=== PATIENT | male | born 1940 | race Hispanic/Latino ===

== ENCOUNTER → 2019-03-20 | Outpatient (CLI) | payer MEDICARE ==
[~2019-03-20] MED LIST: AMIODARONE HCL200 MG PO; ASA81 MG PO; CO Q-10300 MG PO; FLAXSEED OIL PO; LOVENOX60 MG/0.6 SC; MAGNESIUM OXID400 MG PO; MULTIVITAMINS1 EAC7 PO; REGADENOSON 0.4 MG/5 ML SYR IV ONE; TYLENOL PO; Z VERAPAMIL HCL PO; Z.0.LEVOTHYROXINE25 PO; Z.0.PLAVIX75 MG PO; [UNRECOGNIZED DRUG - OTHER] PO; sotalol PO
--- NOTE | 2019-03-21 13:11 | Myoview Stress Test ---
DATE OF STUDY: 03/20/2019 11:21:00 Stress Test - Treadmill ONLY Thank you, Dr. Lopez for this nuclear interpretation consultation. Nuclear gated myocardial perfusion scan performed as per protocol at [facility] at [facility]. The stress test is supervised by Dr. Balaji Lopez. Lexiscan injected 0.4 mg intravenously stress agent. Myoview injected 11 mCi for resting protocol and 31 mCi for stress protocol. IMPRESSION: 1. Normal gated myocardial perfusion scan. 2. No evidence of ischemia or scar noted. 3. Left ventricular ejection fraction 60%. 4. Normal study. Tamar Robertson MD [facility] /[id number]
== END ==
LOC: NM 10:04
PROVIDERS: ATTEND Internal Medicine Cardiovascular Disease
DX: I25.10 Atherosclerotic heart disease of native coronary artery without angina pectoris (principal)
CPT/HCPCS: 78452; 93017; A9502; J2785

== ENCOUNTER → 2021-01-05 | Outpatient (CLI) | payer MEDICARE | LOC: NM 09:18 | PROVIDERS: ATTEND Internal Medicine Cardiovascular Disease | DX: I25.10 Atherosclerotic heart disease of native coronary artery without angina pectoris (principal) | CPT/HCPCS: 78452; 93017; A9502; J2785 ==

== ENCOUNTER 2021-01-11 08:37 | Observation (INO) | payer MEDICARE ==
[2021-01-09 12:54] LABS: BASOPHILS # (AUTO) 0.1 (0.0-0.1); BASOPHILS % 1.1 % (0.0-1.0); EOSINOPHILS # (AUTO) 0.4 (0.0-0.4); EOSINOPHILS % 5.7 % (0.0-6.0); HEMATOCRIT 36.5 % (38.2-49.6); HEMOGLOBIN 11.8 g/dL (14.0-18.0); LYMPHOCYTES # (AUTO) 1.2 (1.0-3.2); LYMPHOCYTES % 19.4 % (18.0-39.1); MEAN CORPUSCULAR HGB CONC 32.3 g/dL (31-35); MEAN CORPUSCULAR VOLUME 98.9 fL (81-99); MONOCYTES # (AUTO) 0.8 (0.2-0.8); MONOCYTES % 12.4 % (4.4-11.3); NEUTROPHILS # (AUTO) 3.7 (2.1-6.9); NEUTROPHILS % 60.6 % (38.7-80.0); PLATELET COUNT 149 x10e3/uL (140-360); RED BLOOD COUNT 3.69 x10e6/uL (4.3-5.7); RED CELL DISTRIBUTION WIDTH 14.3 % (11.7-14.4)
[2021-01-09 13:08] LABS: CALCIUM 9.4 mg/dL (8.4-10.2); CREATININE, SERUM 1.83 mg/dL (0.72-1.25)
[~2021-01-11] VITALS: Ht 172.7 cm; Wt 98.4 kg
[2021-01-11] VITALS (15 sets, daily range): BP systolic 99–136; BP diastolic 66–88
[~2021-01-11 08:37] MED LIST changes: +CARVEDILOL12.5 MG PO; +COREG6.25 MG PO; +LEVOTHYROXINE75 MCG PO; +OMEGA 3 1,0001 EACH PO; +PROPAFENONE HC325 MG PO; -REGADENOSON 0.4 MG/5 ML SYR IV ONE; +ZETIA10 MG PO
[2021-01-11] MEDS ORDERED: FAMOTIDINE 20 MG TAB ONE (08:57)
[2021-01-11] MEDS ORDERED: ALPRAZOLAM 0.5 MG TAB ONE (08:58)
[2021-01-11] MEDS ORDERED: SODIUM CHLORIDE 0.9% 1000ML 1,000 ML ONE (08:58)
[2021-01-11] MEDS ORDERED: MIDAZOLAM HCL 2 MG/2 ML VIAL ONE (09:01)
[2021-01-11] MEDS ORDERED: HEPARIN SOD (PORCINE) 1000 UNIT/ML 30ML ONE (09:01)
[2021-01-11] MEDS ORDERED: HEPARIN SOD/SOD CHLORIDE 2,000 ML ONE (09:02)
[2021-01-11] MEDS ORDERED: FENTANYL CITRATE/PF 100MCG/2 ML INJ ONE (09:02)
[2021-01-11] MEDS ORDERED: NITROGLYCERIN/D5W 200 MCG/ML 0 ML ONE (09:02)
[2021-01-11] MEDS ORDERED: IOPAMIDOL 370 MG/ML 200 ML INFUS..BTL INJ ONE ×3 (09:02→13:47)
[2021-01-11] MEDS ORDERED: LIDOCAINE HCL 2% LOCAL 20 ML VIAL ONE (09:02)
[2021-01-11] MEDS ORDERED: LORAZEPAM INJ 2 MG/ML VIAL ONE (09:06)
[2021-01-11] MEDS ORDERED: CEFAZOLIN SOD 1 GM VIAL ONE (11:35)
[2021-01-11] MEDS ORDERED: SODIUM CHLORIDE 0.9% 50ML 50 ML ONE ×2 (11:35→11:57)
[2021-01-11] MEDS ORDERED: BIVALRIUDIN 250 MG/VIAL VIAL IV ONE (11:57)
[2021-01-11] MEDS: PROPAFENONE HCL 150 MG TAB PO SCH (17:33)
[2021-01-11] MEDS: CARVEDILOL 12.5 MG TAB PO SCH (21:00)
[2021-01-11] MEDS: HYDROCODONE/APAP 5MG-325MG TAB PO PRN (21:15)
[2021-01-11] MEDS: OMEGA 3 POLYUNSAT FATTY ACIDS 1000 MG SOFTGEL PO SCH (21:15)
[2021-01-11] MEDS: ASPIRIN 81 MG CHEW TAB PO SCH (21:15)
[2021-01-11] MEDS: SODIUM CHLORIDE 0.9% 1000ML 1,000 ML IV SCH (23:56)
[2021-01-12] VITALS (8 sets, daily range): BP systolic 101–133; BP diastolic 61–77
[2021-01-12] MEDS: HYDROCODONE/APAP 5MG-325MG TAB PO PRN ×4 (01:15→21:09)
[2021-01-12 05:05] LABS: BASOPHILS # (AUTO) 0.1 (0.0-0.1); BASOPHILS % 1.1 % (0.0-1.0); EOSINOPHILS # (AUTO) 0.2 (0.0-0.4); EOSINOPHILS % 3.3 % (0.0-6.0); HEMATOCRIT 31.6 % (38.2-49.6); HEMOGLOBIN 10.3 g/dL (14.0-18.0); LYMPHOCYTES # (AUTO) 1.1 (1.0-3.2); LYMPHOCYTES % 14.4 % (18.0-39.1); MEAN CORPUSCULAR HGB CONC 32.6 g/dL (31-35); MEAN CORPUSCULAR VOLUME 98.1 fL (81-99); MONOCYTES # (AUTO) 0.7 (0.2-0.8); MONOCYTES % 10.1 % (4.4-11.3); NEUTROPHILS # (AUTO) 5.2 (2.1-6.9); NEUTROPHILS % 70.6 % (38.7-80.0); PLATELET COUNT 140 x10e3/uL (140-360); RED BLOOD COUNT 3.22 x10e6/uL (4.3-5.7); RED CELL DISTRIBUTION WIDTH 14.6 % (11.7-14.4)
[2021-01-12] MEDS: SODIUM CHLORIDE 0.9% 1000ML 1,000 ML IV SCH ×3 (05:28→21:06)
[2021-01-12 05:31] LABS: ANION GAP 13.4 mmol/L (8-16); CALCIUM 8.9 mg/dL (8.4-10.2); CREATININE, SERUM 1.52 mg/dL (0.72-1.25); POTASSIUM 4.4 mmol/L (3.5-5.1)
[2021-01-12] MEDS: LEVOTHYROXINE SODIUM 75 MCG TAB PO SCH (05:44)
[2021-01-12] MEDS: CO Q10 300 MG PO SCH (09:00)
[2021-01-12] MEDS: CARVEDILOL 3.125 MG TAB PO SCH (09:04)
[2021-01-12] MEDS: CARVEDILOL 12.5 MG TAB PO SCH ×3 (09:06→21:00)
[2021-01-12] MEDS: OMEGA 3 POLYUNSAT FATTY ACIDS 1000 MG SOFTGEL PO SCH ×3 (09:08→21:06)
[2021-01-12] MEDS: CLOPIDOGREL BISULFATE 75 MG TAB PO SCH (09:08)
[2021-01-12] MEDS: EZETIMIBE 10 MG TAB PO SCH (09:09)
[2021-01-12] MEDS: PROPAFENONE HCL 150 MG TAB PO SCH ×2 (09:09→16:57)
[2021-01-12] MEDS ORDERED: IRON SUCROSE 100 MG in SODIUM CHLORIDE 0.9% 100 ML 100 ML IV ONE (10:00)
[2021-01-12] MEDS: ASPIRIN 81 MG CHEW TAB PO SCH (21:06)
[2021-01-13] VITALS: BP 103/74
[2021-01-13 04:00] VITALS: BP 110/69
[2021-01-13] MEDS: LEVOTHYROXINE SODIUM 75 MCG TAB PO SCH (05:02)
[2021-01-13 07:00] LABS: ANION GAP 13.2 mmol/L (8-16); CALCIUM 8.5 mg/dL (8.4-10.2); CREATININE, SERUM 1.4 mg/dL (0.72-1.25); POTASSIUM 4.2 mmol/L (3.5-5.1)
[2021-01-13] MEDS ORDERED: DIGOXIN INJ 0.25 MG/ML 2 ML AMP IV ONE (07:00)
[2021-01-13 08:37] VITALS: BP 111/71
[2021-01-13 08:50] VITALS: BP 111/71
[2021-01-13] MEDS: OMEGA 3 POLYUNSAT FATTY ACIDS 1000 MG SOFTGEL PO SCH (09:00)
[2021-01-13] MEDS: CO Q10 300 MG PO SCH (09:00)
[2021-01-13] MEDS: CLOPIDOGREL BISULFATE 75 MG TAB PO SCH (09:00)
[2021-01-13] MEDS: EZETIMIBE 10 MG TAB PO SCH (09:00)
[2021-01-13] MEDS: CARVEDILOL 3.125 MG TAB PO SCH (09:00)
[2021-01-13] MEDS: PROPAFENONE HCL 150 MG TAB PO SCH (09:00)
[2021-01-13] MEDS: SODIUM CHLORIDE 0.9% 1000ML 1,000 ML IV SCH (09:30)
[2021-01-13] MEDS ORDERED: SODIUM CHLORIDE 0.9% 100 ML ONE (09:36)
[2021-01-13] MEDS ORDERED: IOPAMIDOL 370 MG/ML 200 ML INFUS..BTL INJ ONE (09:37)
[2021-01-13] MEDS ORDERED: METOPROLOL TARTRATE 25 MG TAB ONE (09:48)
[2021-01-13] MEDS ORDERED: METOPROLOL TARTRATE INJ 1 MG/ML VIAL ONE ×2 (09:57→10:24)
[2021-01-13] MEDS ORDERED: NITROGLYCERIN 0.4 MG SUBL ONE (09:57)
[2021-01-13 11:15] VITALS: BP 110/65
== END 2021-01-13 13:14 | disposition home or self-care (01) ==
LOC: CATH LAB 08:37 → CATH LAB V 13:53 → MED/SURG2 16:08
PROVIDERS: ADMIT Internal Medicine Cardiovascular Disease; ATTEND Internal Medicine Cardiovascular Disease
DX: I25.118 Atherosclerotic heart disease of native coronary artery with other forms of angina pectoris (principal); I49.5 Sick sinus syndrome; I48.0 Paroxysmal atrial fibrillation; I13.10 Hypertensive heart and chronic kidney disease without heart failure, with stage 1 through stage 4 chronic kidney disease, or unspecified chronic kidney disease; N18.9 Chronic kidney disease, unspecified; Z85.048 Personal history of other malignant neoplasm of rectum, rectosigmoid junction, and anus; Z01.812 Encounter for preprocedural laboratory examination; Z20.822 Contact with and (suspected) exposure to COVID-19; Z88.8 Allergy status to other drugs, medicaments and biological substances; Z95.5 Presence of coronary angioplasty implant and graft; Z95.0 Presence of cardiac pacemaker; Z95.2 Presence of prosthetic heart valve
CPT/HCPCS: 36415 ×3; 71046; 75574; 75605; 80048 ×3; 83880 ×2; 85025 ×2; 92920; 93456 ×2; 96361; C1725 ×2; C1751; C1769 ×3; C1887; G0378 ×3; J0583; J0690; J1160; J1756; J2001; J2060; J2250; J3010; J7030 ×3; J7050; Q9967 ×2; U0002; 93451; 93454; 96360; 99152; 99153; J1644

== ENCOUNTER → 2021-01-18 | Outpatient (CLI) | payer MEDICARE ==
[2021-01-18 13:11] LABS: BASOPHILS # (AUTO) 0.1 (0.0-0.1); BASOPHILS % 0.9 % (0.0-1.0); EOSINOPHILS # (AUTO) 0.4 (0.0-0.4); EOSINOPHILS % 6.2 % (0.0-6.0); HEMATOCRIT 34.1 % (38.2-49.6); LYMPHOCYTES # (AUTO) 1.3 (1.0-3.2); LYMPHOCYTES % 18.5 % (18.0-39.1); MEAN CORPUSCULAR HEMOGLOBIN 32.2 pg (28-32); MEAN CORPUSCULAR HGB CONC 32.3 g/dL (31-35); MEAN CORPUSCULAR VOLUME 99.7 fL (81-99); MONOCYTES # (AUTO) 0.6 (0.2-0.8); MONOCYTES % 8.9 % (4.4-11.3); NEUTROPHILS # (AUTO) 4.3 (2.1-6.9); NEUTROPHILS % 64.2 % (38.7-80.0); PLATELET COUNT 175 x10e3/uL (140-360); RED BLOOD COUNT 3.42 x10e6/uL (4.3-5.7); RED CELL DISTRIBUTION WIDTH 14.8 % (11.7-14.4); RETICULOCYTE % 3.7 % (0.8-2.2)
[2021-01-18 13:27] LABS: ANION GAP 15.5 mmol/L (8-16); CALCIUM 9.6 mg/dL (8.4-10.2); CREATININE, SERUM 1.66 mg/dL (0.72-1.25); POTASSIUM 4.5 mmol/L (3.5-5.1)
== END ==
LOC: LAB 12:43
PROVIDERS: ATTEND Internal Medicine Cardiovascular Disease
DX: D50.9 Iron deficiency anemia, unspecified (principal); D51.9 Vitamin B12 deficiency anemia, unspecified; D52.9 Folate deficiency anemia, unspecified; N18.30 Chronic kidney disease, stage 3 unspecified
CPT/HCPCS: 36415; 80048; 82607; 82746; 83540; 84466; 85025; 85045

== ENCOUNTER → 2021-01-31 | Day surgery (SDC) | payer MEDICARE ==
[~2021-01-31] VITALS: Ht 172.7 cm; Wt 96.6 kg
[2021-01-31] VITALS (13 sets, daily range): BP systolic 126–159; BP diastolic 66–105
[~2021-01-31] MED LIST changes: +ASPIRIN 81 MG CHEW TAB ONE; +BIVALRIUDIN 250 MG/VIAL VIAL IV ONE; +CEFAZOLIN SOD 1 GM VIAL ONE; +CLOPIDOGREL BISULFATE 75 MG TAB ONE; +ENTRESTO 24 MG1 EACH PO; +FAMOTIDINE 20 MG TAB ONE; +FENTANYL CITRATE/PF 100MCG/2 ML INJ ONE; +HEPARIN SOD/SOD CHLORIDE 2,000 ML ONE; +IOPAMIDOL 370 MG/ML 200 ML INFUS..BTL INJ ONE; +LIDOCAINE HCL 2% LOCAL 20 ML VIAL ONE; +LORAZEPAM INJ 2 MG/ML VIAL ONE; +MIDAZOLAM HCL 2 MG/2 ML VIAL ONE; +REPATHA SU140 MG/1 M SC; +SLOW FE PO; +SODIUM CHLORIDE 0.9% 1000ML 1,000 ML ONE; +SODIUM CHLORIDE 0.9% 50ML 50 ML ONE; +VITAMIN B-121000 MCG PO
[2021-01-31 10:00] LABS: BASOPHILS # (AUTO) 0.1 (0.0-0.1); BASOPHILS % 1.9 % (0.0-1.0); EOSINOPHILS # (AUTO) 0.5 (0.0-0.4); EOSINOPHILS % 8.5 % (0.0-6.0); HEMATOCRIT 37.4 % (38.2-49.6); HEMOGLOBIN 12.1 g/dL (14.0-18.0); LYMPHOCYTES # (AUTO) 1.3 (1.0-3.2); LYMPHOCYTES % 24.3 % (18.0-39.1); MEAN CORPUSCULAR HEMOGLOBIN 33.1 pg (28-32); MEAN CORPUSCULAR HGB CONC 32.4 g/dL (31-35); MEAN CORPUSCULAR VOLUME 102.2 fL (81-99); MONOCYTES # (AUTO) 0.7 (0.2-0.8); MONOCYTES % 12.4 % (4.4-11.3); NEUTROPHILS # (AUTO) 2.8 (2.1-6.9); NEUTROPHILS % 52.2 % (38.7-80.0); PLATELET COUNT 153 x10e3/uL (140-360); RED BLOOD COUNT 3.66 x10e6/uL (4.3-5.7)
[2021-01-31 10:18] LABS: ALBUMIN 3.5 g/dL (3.5-5.0); ALBUMIN/GLOBULIN RATIO 1.1 (0.8-2.0); CALCIUM 9.3 mg/dL (8.4-10.2); CREATININE, SERUM 1.74 mg/dL (0.72-1.25)
== END | disposition home or self-care (01) ==
LOC: CATH LAB 09:19
PROVIDERS: ATTEND Internal Medicine Cardiovascular Disease
DX: I25.110 Atherosclerotic heart disease of native coronary artery with unstable angina pectoris (principal); I34.0 Nonrheumatic mitral (valve) insufficiency; I13.10 Hypertensive heart and chronic kidney disease without heart failure, with stage 1 through stage 4 chronic kidney disease, or unspecified chronic kidney disease; N18.9 Chronic kidney disease, unspecified; E78.5 Hyperlipidemia, unspecified; I49.5 Sick sinus syndrome; D64.9 Anemia, unspecified; Z88.8 Allergy status to other drugs, medicaments and biological substances; Z01.812 Encounter for preprocedural laboratory examination; Z20.822 Contact with and (suspected) exposure to COVID-19; Z79.02 Long term (current) use of antithrombotics/antiplatelets; Z79.82 Long term (current) use of aspirin; Z95.0 Presence of cardiac pacemaker; Z95.5 Presence of coronary angioplasty implant and graft
CPT/HCPCS: 93454; C9600; 36415; 80053; 85025; 92928; 99152; 99153; C1760; C1769; C1876; J0583; J0690; J2001; J2060; J2250; J3010; J7030; Q9967; U0002

== ENCOUNTER → 2021-04-14 | Outpatient (CLI) | payer MEDICARE ==
[~2021-04-14] MED LIST changes: -ASPIRIN 81 MG CHEW TAB ONE; -BIVALRIUDIN 250 MG/VIAL VIAL IV ONE; -CEFAZOLIN SOD 1 GM VIAL ONE; -CLOPIDOGREL BISULFATE 75 MG TAB ONE; -FAMOTIDINE 20 MG TAB ONE; -FENTANYL CITRATE/PF 100MCG/2 ML INJ ONE; -HEPARIN SOD/SOD CHLORIDE 2,000 ML ONE; -IOPAMIDOL 370 MG/ML 200 ML INFUS..BTL INJ ONE; -LIDOCAINE HCL 2% LOCAL 20 ML VIAL ONE; -LORAZEPAM INJ 2 MG/ML VIAL ONE; -MIDAZOLAM HCL 2 MG/2 ML VIAL ONE; -SODIUM CHLORIDE 0.9% 1000ML 1,000 ML ONE; -SODIUM CHLORIDE 0.9% 50ML 50 ML ONE
== END ==
LOC: US 08:35
PROVIDERS: ATTEND Internal Medicine Medical Oncology
DX: R94.4 Abnormal results of kidney function studies (principal)
CPT/HCPCS: 76770

== ENCOUNTER → 2022-03-13 | Outpatient (CLI) | payer MEDICARE | LOC: RAD 10:44 | PROVIDERS: ATTEND Internal Medicine Cardiovascular Disease | DX: J44.1 Chronic obstructive pulmonary disease with (acute) exacerbation (principal) | CPT/HCPCS: 71046 ==